=== PATIENT | female | born 1990 | race Caucasian/White ===

== ENCOUNTER 2017-03-03 06:13 | Inpatient (IN) | payer BC ==
[~2017-03-03] VITALS: Ht 157.5 cm; Wt 83.0 kg
[2017-03-03] MEDS ORDERED: OXYTOCIN 30U/ 0.9% NaCL 500ML 500 ML IV ONE (06:33)
[2017-03-03] MEDS ORDERED: D5%-LACTATED RINGERS 1,000 ML IV SCH (06:33)
[2017-03-03] MEDS: LACTATED RINGERS 1,000 ML IV SCH ×2 (06:33→07:23)
[2017-03-03] MEDS ORDERED: OXYTOCIN 30U/ 0.9% NaCL 500ML 500 ML ONE ×2 (06:38→09:32)
[2017-03-03] MEDS ORDERED: NEWBORN KIT ONE (06:38)
[2017-03-03] MEDS ORDERED: ONDANSETRON 2MG/ML, 2ML IVPush PRN (07:00)
[2017-03-03] MEDS ORDERED: FENTANYL PF 100 MCG/2ML IVPush PRN (07:00)
[2017-03-03] MEDS ORDERED: PENICILLIN GK 5,000,000 UNITS in DEXTROSE 5% 100 ML IVPB ONE (07:00)
[2017-03-03] MEDS ORDERED: FENTANYL PF 100 MCG/2ML IV PRN (07:00)
[2017-03-03] MEDS ORDERED: CALCIUM CARBONATE 500 MG TAB.CHEW PO PRN ×2 (07:00→08:00)
[2017-03-03] MEDS ORDERED: ONDANSETRON 2MG/ML, 2ML IV PRN (08:00)
[2017-03-03] MEDS ORDERED: DOCUSATE 100 MG CAPSULE PO PRN (08:00)
[2017-03-03] MEDS ORDERED: OXYcodone/APAP 5/325MG TABLET PO PRN ×2 (08:00)
[2017-03-03] MEDS ORDERED: MISOPROSTOL 200 MCG TABLET PR PRN (08:00)
[2017-03-03] MEDS ORDERED: ACETAMINOPHEN 325 MG TABLET PO PRN ×2 (08:00)
[2017-03-03] MEDS ORDERED: DIPH,PERTUSS(ACELL),TET VAC/PF NC IM-VACC PRN (08:00)
[2017-03-03] MEDS ORDERED: MEASLES,MUMPS&RUBELLA VACC/PF 0.5 ML SQ PRN (08:00)
[2017-03-03] MEDS ORDERED: MAGNESIUM HYDROXIDE 8%, 30ML UDC PO PRN (08:00)
[2017-03-03] MEDS ORDERED: LIDOCAINE 1%, 20ML ONE (08:17)
[2017-03-03] MEDS: PRENATAL VIT/IRON/FA 1 EACH TABLET PO SCH (09:00)
[2017-03-03] MEDS ORDERED: IBUPROFEN 600 MG TABLET ONE (09:32)
[2017-03-03] MEDS: OXYTOCIN 30U/ 0.9% NaCL 500ML 500 ML IV SCH ×2 (09:36→17:42)
[2017-03-03] MEDS: IBUPROFEN 600 MG TABLET PO PRN ×3 (09:37→21:46)
[2017-03-03 10:40] VITALS: BP 116/72
[2017-03-03] MEDS ORDERED: PENICILLIN GK 2,500,000 UNITS in DEXTROSE 5% 100 ML IV SCH (11:00)
[2017-03-03 12:00] VITALS: BP 112/68
[2017-03-03 16:00] VITALS: BP 116/70
[2017-03-03 20:30] VITALS: BP 114/72
[2017-03-04 01:40] VITALS: BP 115/77
[2017-03-04] MEDS: OXYTOCIN 30U/ 0.9% NaCL 500ML 500 ML IV SCH (03:42)
[2017-03-04] MEDS: IBUPROFEN 600 MG TABLET PO PRN ×2 (06:44→14:01)
[2017-03-04] MEDS: PRENATAL VIT/IRON/FA 1 EACH TABLET PO SCH (09:09)
[2017-03-04 09:10] VITALS: BP 109/70
[2017-03-04 12:04] VITALS: BP 110/72
[2017-03-04] MEDS ORDERED: OXYC-302 PO (13:26)
[2017-03-04] MEDS ORDERED: IBUP-1222 PO (13:26)
== END 2017-03-04 17:58 | disposition home or self-care (01) | DRG 775 ==
LOC: LDOP 06:13 → LDIP 06:40 → 2NW 10:40
PROVIDERS: ADMIT Obstetrics & Gynecology; ATTEND Obstetrics & Gynecology
PROC: 10E0XZZ Delivery of Products of Conception, External Approach (ICD-10-PCS; principal; 2017-03-03)
PROC: 0KQM0ZZ Repair Perineum Muscle, Open Approach (ICD-10-PCS; 2017-03-03)
DX: O99.824 Streptococcus B carrier state complicating childbirth (principal); O77.0 Labor and delivery complicated by meconium in amniotic fluid; O69.81X0 Labor and delivery complicated by cord around neck, without compression, not applicable or unspecified; O70.1 Second degree perineal laceration during delivery; Z3A.40 40 weeks gestation of pregnancy; Z37.0 Single live birth
CPT/HCPCS: 36415; 82803; 85025; 86850; 86900; J2540; J2590; J7120